=== PATIENT | male | born 1990 | race Hispanic/Latino ===

== ENCOUNTER 2024-07-28 11:14 | Emergency (ER) | payer SELFPAY ==
--- NOTE | ~2024-07-28 | XR_ITS ---
EXAMINATION: XR thoracic spine 3V DATE: 07/28/2024 13:48 INDICATION: Back pain. TECHNIQUE: 3 views of thoracic spine were obtained. COMPARISON: None. FINDINGS: There is 6 degrees levocurvature of thoracic spine. Vertebral body heights are normal. Ther e is mildly decreased disc height at multiple mid thoracic levels. IMPRESSION: 1. Mild thoracic spondylosis. Reviewed, dictated and finalized at location A. CUTTER
[2024-07-28 11:27] VITALS: BP 148/89; PULSE 81; RESP 16; TEMP 36.6; O2SAT 99
--- NOTE | 2024-07-28 13:00 | ED.SKABFB ---
HPI - Skin/Abscess/Foreign Bdy General Chief complaint: Skin/Abscess/Foreign Body Stated complaint: pimple on back Time Seen by Provider: 07/28/24 12:30 Focused HPI: Patient is a 34-year-old non-Maltese speaking male who presents to the ER with a 3 year history of a cyst on his back. He reports the cyst has gotten worse over the past year. Patient denies pain at the site, drainage, redness, recent fevers. He reports he has never had it evaluated by a doctor. Patient is insistent on having imaging done to the site. He was told he would be recommended to a general surgeon who could monitor the site and suggest further treatment. The patient was in agreement but wanted to have some form of treatment here first. Patient denies any medical history and does not take any daily medications. GENERAL: Well-appearing, well-nourished, and in no acute distress. HEAD: Normocephalic, atraumatic. CHEST: Clear to auscultation. ?No respiratory distress. HEART: Regular rate and rhythm.? NEURO: ?Alert and oriented x3. SKIN: quarter-sized palpable cyst felt midline, retirement down pt's spine. No redness, swelling, discharge, warmth noted. Patient screened in triage and initial orders placed.? ?Additional care and disposition to be based upon?diagnostic testing and treatment. Review of Systems Review of Systems: All systems reviewed & are unremarkable except as noted in HPI and below Exam Narrative: GENERAL: Well appearing, well-nourished, non-toxic, in no acute distress. HEAD: Normocephalic, atraumatic. NECK: Supple. No adenopathy, no masses. RESPIRATORY: Airway patent, respirations nonlabored. Clear to auscultation bilaterally, no rales, rhonchi, wheezing. CARDIOVASCULAR: Regular rate and rhythm without murmurs, rubs, or gallops. Peripheral pulses 2+ and equal bilaterally. ABDOMINAL: Soft, nontender, nondistended, no hepatosplenomegaly. Normoactive BS. MUSCULOSKELETAL: Moves all extremities. Strength/ROM intact without gross deformities. SKIN: Warm, dry, normal color. No rashes. Quarter-sized palpable cyst felt midline, retirement down pt's spine. No redness, swelling, discharge, warmth noted. NEURO: A&O X3. Speech clear. Cranial nerves II-XII grossly intact. No ataxic movements. PSYCHIATRIC: Appropriate mood and affect. Normal interaction. Course Vital Signs Vital signs: Vital Signs Temperature 36.6 C 07/28/24 11:27 Pulse Rate 81 07/28/24 11:27 Respiratory Rate 16 07/28/24 11:27 Blood Pressure 148/89 H 07/28/24 11:27 Pulse Oximetry 99 07/28/24 11:27 Temperature 36.6 C 07/28/24 11:27 Pulse Rate 81 07/28/24 11:27 Respiratory Rate 16 07/28/24 11:27 Blood Pressure 148/89 H 07/28/24 11:27 Pulse Oximetry 99 07/28/24 11:27 MDM - Skin/Abscess/Foreign Bdy MDM Narrative Medical decision making narrative: Patient is a 34-year-old non-Maltese speaking male who presents to the ER with a 3 year history of a cyst on his back. He reports the cyst has gotten worse over the past year. Patient denies pain at the site, drainage, redness, recent fevers. He reports he has never had it evaluated by a doctor. Patient is insistent on having imaging done to the site. He was told he would be recommended to a general surgeon who could monitor the site and suggest further treatment. The patient was in agreement but wanted to have some form of treatment here first. Patient denies any medical history and does not take any daily medications. Labs Ordered: None necessary Imaging Ordered: Thoracic spine 3V x-ray Medications Ordered: None necessary Results: Patient's thoracic spine x-ray indicates mild thoracic spondylosis. No acute abnormalities. Diagnosis: Epidermoid cyst Consults: Dermatology (upon discharge) Patient Education/Shared MDM: Results of x-ray shared with patient. Patient strongly advised to follow-up with PCP and dermatology, if necessary. He will be discharged home with no new prescriptions. Strict return precautions provided. Patient verbalized understanding and is in agreement with plan. Vital signs stable at time of discharge. All questions answered. Differential Diagnosis Differential diagnosis: Likely abscess of skin or subcutaneous tissue, cellulitis and other (epidermoid cyst) Imaging Data Attestation: I personally reviewed and interpreted this imaging study as follows: Radiologist's impression: Impressions Thoracic Spine X-Ray 07/28/24 13:51 IMPRESSION: 1. Mild thoracic spondylosis. Discharge Plan Discharge Clinical Impression: Epidermoid cyst of skin of back Patient Disposition: Home, Self-Care Condition: Stable Instructions: Antibiotic Form, Epidermal Inclusion Cysts (ED) Patient Language: Maltese Follow-up/Referrals: PHYSICIAN,AIR/OCEAN EXPORT CLERK [Primary Care Provider] -
== END 2024-07-28 14:49 | disposition home or self-care (01) ==
LOC: ANHED 14:39
PROVIDERS: Emergency Provider Registered Nurse
DX: L72.0 Epidermal cyst (principal)
CPT/HCPCS: 72072; 99283